=== PATIENT | female | born 1990 | race Caucasian/White ===

== ENCOUNTER 2016-07-05 02:28 | Emergency (ER) | payer MEDICAID ==
[2016-07-05 03:53] VITALS: BP 122/77
== END 2016-07-05 03:53 | disposition home or self-care (01) ==
LOC: ED 02:28
DX: J20.9 Acute bronchitis, unspecified (principal); Z72.0 Tobacco use
CPT/HCPCS: Q0092; Q0162

== ENCOUNTER 2017-05-08 14:36 | Emergency (ER) | payer MEDICAID ==
[2017-05-08 16:40] VITALS: BP 110/65
== END 2017-05-08 16:40 | disposition home or self-care (01) ==
LOC: ED 14:36
DX: J20.9 Acute bronchitis, unspecified (principal)